=== PATIENT | male | born 1945 | race Caucasian/White ===

== ENCOUNTER 2017-05-17 10:30 | Inpatient (IN) ==
[2017-05-17] MEDS ORDERED: ASPIRIN 325 MG TABLET PO STA (11:19)
[2017-05-17] MEDS ORDERED: ENOXAPARIN 100 MG/ML SYRINGE SUBCUT STA (11:19)
[2017-05-17 12:03] LABS: Basophils # 0.1 10*3/uL (0.0-0.2); Basophils % 0.7 % (0.0-0.8); Eosinophils # 0.2 10*3/uL (0.0-0.87); Eosinophils % 2.6 % (0.00-10.9); Hematocrit 42.1 VOL% (42.0-52.0); Hemoglobin 14.1 GM/DL (14.0-18.0); Immature Granulocytes % 0.4 %; Immature Granulocytes Absolute 0.03 #; Lymphocytes # 1.4 10*3/uL (1.4-4.0); Lymphocytes % 17.1 % (21.2-54.2); Mean Corpuscular HGB Conc 33.5 GM/DL (32-36); Mean Corpuscular Hemoglobin 30 PG (27-34); Mean Corpuscular Volume 89.2 FL (87-102); Mean Platelet Volume 11.8 FL (9.6-12.0); Monocytes % 12.5 % (1.7-12.7); Neutrophils # 5.4 10*3/uL (1.4-7.4); Neutrophils % 66.7 % (38.7-73.9); Platelet Count 251 T/CUMM (130-400); Red Blood Count 4.72 MC/CUMM (3.8-5.5); Red Cell Distribution Width 14.2 % (9.3-17.3)
[2017-05-17] MEDS ORDERED: ASPIRIN 325 MG TABLET ONE (12:21)
[2017-05-17] MEDS ORDERED: ENOXAPARIN 80 MG/0.8 ML SYRINGE SUBCUT ONE (12:21)
[2017-05-17 12:36] LABS: Albumin 3.8 G/DL (3.4-5.0); Bilirubin,Total 0.8 MG/DL (0.2-1.0); Calcium 8.7 MG/DL (8.5-10.1); Magnesium 2.1 MG/DL (1.8-2.4); Osmolality,Calculated 284.3 MOS/KG (273-304); Potassium 4.4 MMOL/L (3.5-5.1); Total Protein 7.1 G/DL (6.4-8.3)
[2017-05-17] MEDS ORDERED: ACETAMINOPHEN 325 MG TABLET PO PRN (13:32)
[2017-05-17] MEDS ORDERED: NITROGLYCERIN SL 0.4 MG TABLET SL PRN (13:32)
[2017-05-17] MEDS ORDERED: ONDANSETRON 4 MG/2 ML VIAL IV PRN (13:32)
[2017-05-17] MEDS ORDERED: MAGNESIUM HYDROXIDE SUSP 30 ML UDCUP PO PRN (13:32)
[2017-05-17] MEDS ORDERED: clonazePAM 0.5 MG TABLET PO PRN (13:57)
[2017-05-17 16:51] LABS: Free T4 (Free Thyroxine) 1.04 NG/DL (0.76-1.46); Risk Ratio 3.8; Risk Ratio 4.05; VLDL CHOLESTEROL 21.6 MG/DL; VLDL CHOLESTEROL 22.2 MG/DL
[2017-05-17] MEDS: THEOPHYLLINE ER 300 MG TABLET PO SCH (17:44)
[2017-05-17] MEDS ORDERED: ENOXAPARIN 40 MG/0.4 ML SYRINGE SUBCUT ONE (21:00)
[2017-05-17] MEDS: METOPROLOL TARTRATE 25 MG TABLET PO SCH (21:38)
[2017-05-17] MEDS: FAMOTIDINE 20 MG TABLET PO SCH (21:38)
[2017-05-18] MEDS: ENOXAPARIN 80 MG/0.8 ML SYRINGE SUBCUT SCH ×2 (05:58→17:00)
[2017-05-18] MEDS ORDERED: GLUCAGON 1 MG VIAL IM PRN (08:32)
[2017-05-18] MEDS ORDERED: DEXTROSE 50% 25 GM/50 ML VIAL IV PRN (08:32)
[2017-05-18 08:37] LABS: Basophils # 0.1 10*3/uL (0.0-0.2); Basophils % 1.2 % (0.0-0.8); Eosinophils # 0.2 10*3/uL (0.0-0.87); Eosinophils % 3.5 % (0.00-10.9); Hematocrit 42.5 VOL% (42.0-52.0); Hemoglobin 14.1 GM/DL (14.0-18.0); Immature Granulocytes % 0.3 %; Immature Granulocytes Absolute 0.02 #; Lymphocytes # 1.4 10*3/uL (1.4-4.0); Lymphocytes % 22.9 % (21.2-54.2); Mean Corpuscular HGB Conc 33.2 GM/DL (32-36); Mean Corpuscular Hemoglobin 30 PG (27-34); Mean Corpuscular Volume 89.9 FL (87-102); Mean Platelet Volume 11.8 FL (9.6-12.0); Monocytes # 0.8 10*3/uL (0.11-0.8); Monocytes % 12.9 % (1.7-12.7); Neutrophils # 3.6 10*3/uL (1.4-7.4); Neutrophils % 59.2 % (38.7-73.9); Platelet Count 266 T/CUMM (130-400); Red Blood Count 4.73 MC/CUMM (3.8-5.5); Red Cell Distribution Width 14.3 % (9.3-17.3)
[2017-05-18 09:08] LABS: Albumin 3.4 G/DL (3.4-5.0); Bilirubin,Total 0.5 MG/DL (0.2-1.0); Calcium 8.6 MG/DL (8.5-10.1); Magnesium 2.2 MG/DL (1.8-2.4); Osmolality,Calculated 285.3 MOS/KG (273-304); Potassium 4.4 MMOL/L (3.5-5.1); Total Protein 6.6 G/DL (6.4-8.3)
[2017-05-18 09:17] LABS: Basophils # 0.1 10*3/uL (0.0-0.2); Basophils % 1.1 % (0.0-0.8); Eosinophils # 0.2 10*3/uL (0.0-0.87); Eosinophils % 3.5 % (0.00-10.9); Hematocrit 43.7 VOL% (42.0-52.0); Hemoglobin 14.7 GM/DL (14.0-18.0); Immature Granulocytes % 0.5 %; Immature Granulocytes Absolute 0.03 #; Lymphocytes # 1.5 10*3/uL (1.4-4.0); Lymphocytes % 22.5 % (21.2-54.2); Mean Corpuscular HGB Conc 33.6 GM/DL (32-36); Mean Corpuscular Hemoglobin 30 PG (27-34); Mean Corpuscular Volume 88.8 FL (87-102); Mean Platelet Volume 11.3 FL (9.6-12.0); Monocytes # 0.8 10*3/uL (0.11-0.8); Monocytes % 12.8 % (1.7-12.7); Neutrophils # 3.9 10*3/uL (1.4-7.4); Neutrophils % 59.6 % (38.7-73.9); Platelet Count 274 T/CUMM (130-400); Red Blood Count 4.92 MC/CUMM (3.8-5.5); Red Cell Distribution Width 14.3 % (9.3-17.3); White Blood Count 6.6 T/CUMM (4-12)
[2017-05-18] MEDS ORDERED: DIAZEPAM 5 MG TABLET PO ONE (09:33)
[2017-05-18] MEDS ORDERED: diphenhydrAMINE CAP 25 MG CAPSULE PO ONE (09:33)
[2017-05-18] MEDS ORDERED: MAGNESIUM SULF RIDER 2 GM in PREMIX 1 EACH IV PRN (09:33)
[2017-05-18] MEDS ORDERED: POTASSIUM CHLORIDE RIDER 10 MEQ in PREMIX 1 EACH IV PRN (09:33)
[2017-05-18 09:53] LABS: Calcium 8.7 MG/DL (8.5-10.1); Magnesium 2.3 MG/DL (1.8-2.4); Osmolality,Calculated 286.1 MOS/KG (273-304); Potassium 4.7 MMOL/L (3.5-5.1)
[2017-05-18] MEDS ORDERED: LIDOCAINE 1% 20 ML VIAL ONE (09:57)
[2017-05-18] MEDS ORDERED: MIDAZOLAM 2 MG/2 ML VIAL ONE (10:43)
[2017-05-18] MEDS ORDERED: fentaNYL 100 MCG/2 ML VIAL ONE (10:43)
[2017-05-18] MEDS ORDERED: TIROFIBAN 5,000 MCG/100 ML PREMIX IV ONE (11:05)
[2017-05-18] MEDS ORDERED: ASPIRIN CHEW 81 MG TABLET PO ONE (11:12)
[2017-05-18] MEDS ORDERED: TIROFIBAN 5,000 MCG/100 ML PREMIX IV SCH (11:14)
[2017-05-18] MEDS ORDERED: diphenhydrAMINE 50 MG/1 ML VIAL ONE (11:32)
[2017-05-18] MEDS ORDERED: TICAGRELOR 90 MG TABLET ONE (11:33)
[2017-05-18] MEDS: ASPIRIN EC 81 MG TABLET PO SCH (11:42)
[2017-05-18] MEDS ORDERED: SODIUM CHLORIDE 0.9% 1,000 ML IV SCH (12:00)
[2017-05-18] MEDS ORDERED: ENOXAPARIN 40 MG/0.4 ML SYRINGE SUBCUT SCH (14:00)
[2017-05-18] MEDS: DULoxetine 30 MG CAPSULE PO SCH (14:29)
[2017-05-18] MEDS: LISINOPRIL 5 MG TABLET PO SCH (14:29)
[2017-05-18] MEDS: FUROSEMIDE 20 MG TABLET PO SCH (14:29)
[2017-05-18] MEDS: THEOPHYLLINE ER 300 MG TABLET PO SCH ×2 (14:29→17:00)
[2017-05-18] MEDS: METOPROLOL TARTRATE 25 MG TABLET PO SCH ×2 (14:29→21:16)
[2017-05-18] MEDS: MONTELUKAST 10 MG TABLET PO SCH (14:30)
[2017-05-18] MEDS: INSULIN REGULAR 100 UNIT/ML SUBCUT SCH ×3 (14:30→21:17)
[2017-05-18] MEDS: FAMOTIDINE 20 MG TABLET PO SCH ×2 (14:30→21:16)
[2017-05-18] MEDS ORDERED: ROSUVASTATIN 20 MG TABLET PO SCH (21:00)
[2017-05-19] MEDS: ENOXAPARIN 80 MG/0.8 ML SYRINGE SUBCUT SCH (06:10)
[2017-05-19 06:42] LABS: Blood Urea Nitrogen 28 MG/DL (7-18); Calcium 8.4 MG/DL (8.5-10.1); Glucose 115 MG/DL (74-106); Osmolality,Calculated 285.4 MOS/KG (273-304); Potassium 3.9 MMOL/L (3.5-5.1); Sodium 140 MMOL/L (136-145)
[2017-05-19 06:44] LABS: Calcium 8.4 MG/DL (8.5-10.1); Magnesium 2.2 MG/DL (1.8-2.4); Osmolality,Calculated 285.4 MOS/KG (273-304)
[2017-05-19 06:50] LABS: Basophils # 0.1 10*3/uL (0.0-0.2); Basophils % 0.8 % (0.0-0.8); Eosinophils # 0.2 10*3/uL (0.0-0.87); Eosinophils % 2.1 % (0.00-10.9); Hematocrit 37.8 VOL% (42.0-52.0); Immature Granulocytes % 0.6 %; Immature Granulocytes Absolute 0.05 #; Lymphocytes # 1.7 10*3/uL (1.4-4.0); Lymphocytes % 19.9 % (21.2-54.2); Mean Corpuscular HGB Conc 33.6 GM/DL (32-36); Mean Corpuscular Hemoglobin 30 PG (27-34); Monocytes # 1.1 10*3/uL (0.11-0.8); Monocytes % 12.7 % (1.7-12.7); Neutrophils # 5.6 10*3/uL (1.4-7.4); Neutrophils % 63.9 % (38.7-73.9); Platelet Count 259 T/CUMM (130-400); Red Cell Distribution Width 14.6 % (9.3-17.3)
[2017-05-19 06:52] LABS: Hemoglobin 12.7 GM/DL (14.0-18.0); White Blood Count 8.8 T/CUMM (4-12)
[2017-05-19] MEDS: INSULIN REGULAR 100 UNIT/ML SUBCUT SCH ×2 (08:24→14:12)
[2017-05-19] MEDS ORDERED: TICAGRELOR 90 MG TABLET PO SCH (09:00)
[2017-05-19] MEDS: THEOPHYLLINE ER 300 MG TABLET PO SCH (10:40)
[2017-05-19] MEDS: FUROSEMIDE 20 MG TABLET PO SCH (10:40)
[2017-05-19] MEDS: DULoxetine 30 MG CAPSULE PO SCH (10:40)
[2017-05-19] MEDS: MONTELUKAST 10 MG TABLET PO SCH (10:40)
[2017-05-19] MEDS: FAMOTIDINE 20 MG TABLET PO SCH (10:41)
[2017-05-19] MEDS: ASPIRIN EC 81 MG TABLET PO SCH (10:41)
[2017-05-19] MEDS: LISINOPRIL 5 MG TABLET PO SCH (10:41)
[2017-05-19] MEDS: METOPROLOL TARTRATE 25 MG TABLET PO SCH (10:41)
[2017-05-19 11:49] VITALS: BP 110/63
== END 2017-05-19 13:48 | disposition home or self-care (01) | DRG 247 ==
LOC: N.ED 10:30 → SUATTDRO 13:31 → N.EDINP 13:31 → N.TELEN 14:53
PROVIDERS: ADMIT Internal Medicine; ATTEND Internal Medicine
PROC: CLCCHCL (ICD-10-PCS; 2017-05-18 10:45)